=== PATIENT | male | born 1960 | race Caucasian/White ===

== ENCOUNTER 2021-09-17 05:59 | Day surgery (SDC) | payer BC ==
[2021-09-15 17:04] VITALS: BMI 40.7
[2021-09-17] MEDS ORDERED: VANCOMYCIN 1,000 MG VIAL (RESTRICTED TO ID ONLY) ONE ×2 (07:23→08:30)
[2021-09-17] MEDS ORDERED: BENZOIN/ALOE VERA/STORAX/TOLU 30 ML TINCTURE ONE (07:24)
[2021-09-17] MEDS ORDERED: ROPIVACAINE HCL/PF 100 MG/20 ML VIAL ONE (07:39)
[2021-09-17] MEDS ORDERED: MIDAZOLAM HCL 2 MG/2 ML SINGLE DOSE VIAL ONE ×2 (07:39→10:49)
[2021-09-17] MEDS ORDERED: BUPIVACAINE HCL 50 ML ONE (08:13)
[2021-09-17] MEDS ORDERED: PROPOFOL 20 ML ONE ×3 (08:28)
[2021-09-17] MEDS ORDERED: SUCCINYLCHOLINE CHLORIDE 200 MG/10 ML SYRINGE ONE (08:28)
[2021-09-17] MEDS ORDERED: ceFAZolin SODIUM 1 GM VIAL ONE ×4 (08:30→21:28)
[2021-09-17] MEDS ORDERED: TRANEXAMIC ACID 1000 MG/10 ML VIAL ONE ×2 (08:30→10:53)
[2021-09-17] MEDS ORDERED: CYCLOPENTOLATE 2% OPHTH SOLN 2 ML BOTTLE OS ONE ×3 (09:45→09:55)
[2021-09-17] MEDS ORDERED: PHENYLEPHRINE 2.5% OPHTH SOLN 15 ML BOTTLE OS ONE ×3 (09:45→09:55)
[2021-09-17] MEDS ORDERED: TROPICAMIDE 1% OPHTH SOLN 15 ML BOTTLE OS ONE ×3 (09:45→09:55)
[2021-09-17] MEDS ORDERED: CIPROFLOXACIN 0.3% EYE DROPS 5 ML BOTTLE OS ONE ×3 (09:45→09:55)
[2021-09-17] MEDS ORDERED: METOPROLOL TARTRATE 5 MG/5 ML VIAL ONE (10:34)
[2021-09-17] MEDS ORDERED: ONDANSETRON 4 MG/2 ML VIAL IVPUSH PRN ×2 (11:53→11:54)
[2021-09-17] MEDS ORDERED: MAG HYDROX/AL HYDROX/SIMETH 30 ML UNIT-DOSE CUP PO PRN (11:53)
[2021-09-17] MEDS ORDERED: MAGNESIUM HYDROX 2400MG/30ML ORAL SUSPENSION 30 ML CUP PO PRN (11:53)
[2021-09-17] MEDS ORDERED: oxyCODONE HCL 5 MG TABLET PO PRN (11:54)
[2021-09-17] MEDS ORDERED: LACTATED RINGERS SOLUTION 1,000 ML IV SCH (12:00)
[2021-09-17] MEDS: KETOROLAC TROMETHAMINE 15 MG/ML VIAL IVPUSH ONE ×2 (12:17→14:11)
[2021-09-17] MEDS ORDERED: KETOROLAC TROMETHAMINE 30 MG/1 ML VIAL ONE (12:17)
[2021-09-17] MEDS ORDERED: ACETAMINOPHEN 325 MG TABLET (FP) ONE (12:17)
[2021-09-17] MEDS: ACETAMINOPHEN 500 MG TABLET (FP) PO SCH ×4 (12:22→23:13)
[2021-09-17] MEDS ORDERED: GLYCOPYRROLATE 0.2 MG/1 ML VIAL ONE (12:35)
[2021-09-17] MEDS ORDERED: DEXTROSE 5%-WATER - 100 ML IVPB ONE ×2 (16:24→21:28)
[2021-09-17] MEDS: CEFAZOLIN 3 GM in DEXTROSE 5%-WATER - 100 ML IVPB SCH ×2 (16:32→21:34)
[2021-09-17] MEDS: INSULIN (NOVOLOG) ASPART 100 UNITS/ML 10ML VIAL SQ SCH ×2 (16:51→21:44)
[2021-09-17] MEDS: oxyCODONE HCL 5 MG TABLET PO PRN ×2 (19:31→23:13)
[2021-09-17] MEDS: ASPIRIN COATED 81 MG TABLET.EC PO SCH (21:34)
[2021-09-17] MEDS: SENNOSIDES/DOCUSATE COMBO (SENNA PLUS) TABLET (UD) PO SCH (21:34)
[2021-09-17] MEDS: CELECOXIB 200 MG CAPSULE PO SCH (21:34)
[2021-09-17] MEDS ORDERED: PATIENT'S OWN MEDICATION (NON-FORMULARY) (Sitagliptin Phos/Metformin Hcl [Janumet Xr 50-1, PO SCH (22:00)
[2021-09-18] MEDS ORDERED: ceFAZolin SODIUM 1 GM VIAL ONE (04:09)
[2021-09-18] MEDS ORDERED: DEXTROSE 5%-WATER - 100 ML IVPB ONE (04:09)
[2021-09-18] MEDS: oxyCODONE HCL 5 MG TABLET PO PRN ×5 (04:48→21:25)
[2021-09-18] MEDS: CEFAZOLIN 3 GM in DEXTROSE 5%-WATER - 100 ML IVPB SCH (04:49)
[2021-09-18] MEDS: ACETAMINOPHEN 500 MG TABLET (FP) PO SCH ×3 (06:17→17:38)
[2021-09-18] MEDS: INSULIN (NOVOLOG) ASPART 100 UNITS/ML 10ML VIAL SQ SCH ×4 (06:17→21:49)
[2021-09-18 07:53] LABS: CALCIUM 8.4 mg/dl (8.5-10); CREATININE 0.9 mg/dl (0.55-1.3)
[2021-09-18] MEDS: ASPIRIN COATED 81 MG TABLET.EC PO SCH ×2 (09:14→21:24)
[2021-09-18] MEDS: CHOLECALCIFEROL (VIT D3 5000 UNITS) 125 MCG TAB PO SCH (09:14)
[2021-09-18] MEDS: PANTOPRAZOLE 40 MG TABLET PO SCH (09:14)
[2021-09-18] MEDS: CHOLECALCIFEROL (VIT D3) 1,000 UNIT (25 MCG) TABLET PO SCH (09:14)
[2021-09-18] MEDS: LOSARTAN POTASSIUM 50 MG TABLET PO SCH (09:15)
[2021-09-18] MEDS: SENNOSIDES/DOCUSATE COMBO (SENNA PLUS) TABLET (UD) PO SCH ×2 (09:15→21:25)
[2021-09-18] MEDS: CELECOXIB 200 MG CAPSULE PO SCH ×2 (09:15→21:24)
[2021-09-18] MEDS: ROSUVASTATIN CA 20 MG TABLET PO SCH ×2 (09:15→21:24)
[2021-09-18] MEDS: LORATADINE 10 MG TABLET PO SCH (09:16)
[2021-09-18 09:28] LABS: HEMATOCRIT 39.8 % (35.4-49); HEMOGLOBIN 13.2 GM/dL (11.7-16.9); MCHC 33.3 g/dl (32.0-35.9); MEAN CELL VOLUME 81.2 fl (80-96); MEAN PLT VOLUME 8.1 fl (7.5-11.1); PLATELET COUNT 185 10^3/uL (134-434); RDW 13.5 % (11.9-15.9); WHITE BLOOD COUNT 9.6 K/mm3 (4.0-10.0)
[2021-09-18] MEDS ORDERED: PATIENT'S OWN MEDICATION (NON-FORMULARY) (Dapagliflozin Propanediol [Farxiga] 10 MG Tablet PO SCH (10:00)
[2021-09-18] MEDS ORDERED: PATIENT'S OWN MEDICATION (NON-FORMULARY) (Irbesartan [Irbesartan] 150 MG Tablet) PO SCH (10:00)
[2021-09-18] MEDS ORDERED: [UNRECOGNIZED DRUG - REMARK] PO SCH (10:00)
[2021-09-19] MEDS: ACETAMINOPHEN 500 MG TABLET (FP) PO SCH ×4 (01:03→17:52)
[2021-09-19] MEDS: oxyCODONE HCL 5 MG TABLET PO PRN ×3 (06:21→17:52)
[2021-09-19] MEDS: INSULIN (NOVOLOG) ASPART 100 UNITS/ML 10ML VIAL SQ SCH ×3 (06:31→16:40)
[2021-09-19] MEDS: CELECOXIB 200 MG CAPSULE PO SCH (09:15)
[2021-09-19] MEDS: LOSARTAN POTASSIUM 50 MG TABLET PO SCH (09:15)
[2021-09-19] MEDS: ASPIRIN COATED 81 MG TABLET.EC PO SCH (09:15)
[2021-09-19] MEDS: SENNOSIDES/DOCUSATE COMBO (SENNA PLUS) TABLET (UD) PO SCH (09:16)
[2021-09-19] MEDS: LORATADINE 10 MG TABLET PO SCH (09:16)
[2021-09-19] MEDS: CHOLECALCIFEROL (VIT D3) 1,000 UNIT (25 MCG) TABLET PO SCH (09:16)
[2021-09-19] MEDS: PANTOPRAZOLE 40 MG TABLET PO SCH (09:16)
[2021-09-19] MEDS: CHOLECALCIFEROL (VIT D3 5000 UNITS) 125 MCG TAB PO SCH (09:16)
[2021-09-19 09:33] LABS: HEMATOCRIT 36.7 % (35.4-49); HEMOGLOBIN 12.3 GM/dL (11.7-16.9); MCH 27.2 pg (25.7-33.7); MCHC 33.4 g/dl (32.0-35.9); MEAN CELL VOLUME 81.2 fl (80-96); MEAN PLT VOLUME 8.1 fl (7.5-11.1); PLATELET COUNT 172 10^3/uL (134-434); RBC 4.52 M/mm3 (4.00-5.60); RDW 13.7 % (11.9-15.9); WHITE BLOOD COUNT 9.1 K/mm3 (4.0-10.0)
[2021-09-19 18:35] VITALS: BP 113/66; PULSE 96; TEMP 98.7
== END 2021-09-19 18:20 | disposition home or self-care (01) ==
LOC: FASUSAT 05:59 → FM/S 13:20 → FASUSAT 09-19 18:20
PROVIDERS: ATTEND Orthopaedic Surgery Adult Reconstructive Orthopaedic Surgery
PROC: 0SR90J9 Replacement of Right Hip Joint with Synthetic Substitute, Cemented, Open Approach (ICD-10-PCS; principal; 2021-09-17 09:14)
DX: M16.11 Unilateral primary osteoarthritis, right hip (principal); I10 Essential (primary) hypertension; E11.9 Type 2 diabetes mellitus without complications; E78.5 Hyperlipidemia, unspecified; Z87.891 Personal history of nicotine dependence; Z79.84 Long term (current) use of oral hypoglycemic drugs
CPT/HCPCS: 27130; C1776; 36415; 73502-TC-RT-FY; 80048; 82962; 85027; 88305-TC; 88311-TC; 94760; 97010-GP; 97116-GP; 97163-GP